=== PATIENT | female | born 1940 | race Caucasian/White ===

== ENCOUNTER 2016-10-19 16:59 | Inpatient (IN) | payer MEDICARE ==
[~2016-10-19] VITALS: Ht 165.1 cm; Wt 75.0 kg
[2016-10-19 17:03] VITALS: BP 119/58; PULSE 71; RESP 18; TEMP 98.3; O2SAT 93
[2016-10-19] MEDS ORDERED: SODIUM CHLOR 0.9% 1000 ML INJ 1,000 ML IV SCH (17:20)
[2016-10-19] MEDS ORDERED: SODIUM CHLORIDE 0.9% FLUSH 5 ML FLUSH IVF PRN (17:30)
--- NOTE | 2016-10-19 17:41 | PD ---
HPI Chief Complaint: Altered Mental Status Time Seen by Provider: 17:05 Travel History International Travel<30 days: No Contact w/Intl Traveler<30days: No Traveled to known affect area: No History of Present Illness HPI The patient is a 76-year-old female who presents emergency department with family for altered mental status. The patient is a somewhat poor historian , does not know why her family "dropped her off "in the emergency department. The patient does complain of some weakness of the upper extremities bilateral, but denies any headache, neck pain, chest pain, shortness of breath, nausea, vomiting, abdominal pain, or dysuria. She denies any weakness of the lower extremities. The patient is a somewhat poor historian, is able to tell me that she has medical problems, but cannot recall her medications. The patient can also not recall what surgery she has had previously. She denies any acute tobacco use. She denies any ingestion of alcohol or drugs. PFSH Past Medical History Medical History: Unable to Obtain Past Surgical History Surgical History: Unable to Obtain Social History Alcohol Use: No Tobacco Use: No Substance Use: No Allergies-Medications (Allergen,Severity, Reaction): Coded Allergies: No Known Allergies (Unverified , 10/19/16) Review of Systems ROS Limitations: Altered Mental Status, Poor Historian Except as stated in HPI: all other systems reviewed are Neg General / Constitutional: No: Fever HENT: Positive: Lightheadedness, No: Headaches Cardiovascular: No: Chest Pain or Discomfort Respiratory: No: Shortness of Breath Gastrointestinal: No: Nausea, Vomiting, Diarrhea, Abdominal Pain Genitourinary: No: Dysuria Musculoskeletal: Positive: Weakness Neurologic: Positive: Weakness, Change in Mentation, No: Dizziness, Headache, Paresthesia, Sensory Disturbance Physical Exam Narrative GENERAL: Awake, alert, pleasant 76-year-old female who appears her stated age and is in no acute respiratory distress. SKIN: Warm and dry. HEAD: Atraumatic. Normocephalic. EYES: Pupils equal and round. Pinpoint bilateral. EOMs intact. ENT: No nasal bleeding or discharge. Upper and lower dentures are in place. NECK: Trachea midline. No JVD. Transverse lower neck anterior scar. CARDIOVASCULAR: Regular rate and rhythm. No murmur appreciated. RESPIRATORY: No accessory muscle use. Clear to auscultation. Breath sounds equal bilaterally. GASTROINTESTINAL: Abdomen soft, nontender, no rebound tenderness. Well-healed midline surgical scar. MUSCULOSKELETAL: No obvious deformities. No clubbing. No cyanosis. No edema. NEUROLOGICAL: Awake and alert. No obvious cranial nerve deficits. Motor grossly within normal limits. Normal speech. 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 PSYCHIATRIC: Appropriate mood and affect; insight and judgment normal. Data Data Last Documented VS Vital Signs Date Time Temp Pulse Resp B/P Pulse Ox O2 Delivery O2 Flow Rate FiO2 10/19/16 18:00 70 16 123/60 93 Room Air 10/19/16 17:03 98.3 Orders Electrocardiogram (10/19/16 ) Alcohol (Ethanol) (10/19/16 17:20) Ammonia (10/19/16 17:20) Complete Blood Count With Diff (10/19/16 17:20) Comprehensive Metabolic Panel (10/19/16 17:20) Creatine Kinase (Cpk) (10/19/16 17:20) Drug Screen, Random Urine (10/19/16 17:20) Prothrombin Time / Inr (Pt) (10/19/16 17:20) Act Partial Throm Time (Ptt) (10/19/16 17:20) Troponin I (10/19/16 17:20) Thyroid Stimulating Hormone (10/19/16 17:20) Urinalysis - C+S If Indicated (10/19/16 17:20) Chest, Single Ap (10/19/16 17:20) Ct Brain W/O Iv Contrast(Rout) (10/19/16 17:20) Blood Glucose (10/19/16 17:20) Ecg Monitoring (10/19/16 17:20) Iv Access Insert/Monitor (10/19/16 17:20) Oximetry (10/19/16 17:20) Sodium Chloride 0.9% Flush (Ns Flush) (10/19/16 17:30) Sodium Chlor 0.9% 1000 Ml Inj (Ns 1000 M (10/19/16 17:20) Sodium Chlorid 0.9% 500 Ml Inj (Ns 500 M (10/19/16 18:15) CKMB (10/19/16 17:40) CKMB% (10/19/16 17:40) Sodium Chlor 0.9% 1000 Ml Inj (Ns 1000 M (10/19/16 19:15) Cath For Specimen (10/19/16 19:12) Labs Laboratory Tests Test 10/19/16 17:40 White Blood Count 7.0 TH/MM3 Red Blood Count 4.57 MIL/MM3 Hemoglobin 12.8 GM/DL Hematocrit 37.9 % Mean Corpuscular Volume 82.8 FL Mean Corpuscular Hemoglobin 27.9 PG Mean Corpuscular Hemoglobin 33.7 % Concent Red Cell Distribution Width 13.7 % Platelet Count 237 TH/MM3 Mean Platelet Volume 10.0 FL Neutrophils (%) (Auto) 65.2 % Lymphocytes (%) (Auto) 20.6 % Monocytes (%) (Auto) 11.7 % Eosinophils (%) (Auto) 2.0 % Basophils (%) (Auto) 0.5 % Neutrophils # (Auto) 4.6 TH/MM3 Lymphocytes # (Auto) 1.4 TH/MM3 Monocytes # (Auto) 0.8 TH/MM3 Eosinophils # (Auto) 0.1 TH/MM3 Basophils # (Auto) 0.0 TH/MM3 CBC Comment DIFF FINAL Differential Comment Prothrombin Time 10.9 SEC Prothromb Time International 1.0 RATIO Ratio Activated Partial 25.9 SEC Thromboplast Time Sodium Level 139 MEQ/L Potassium Level 3.9 MEQ/L Chloride Level 106 MEQ/L Carbon Dioxide Level 21.8 MEQ/L Anion Gap 11 MEQ/L Blood Urea Nitrogen 30 MG/DL Creatinine 1.54 MG/DL Estimat Glomerular Filtration 33 ML/MIN Rate Random Glucose 202 MG/DL Calcium Level 9.0 MG/DL Total Bilirubin 0.3 MG/DL Aspartate Amino Transf 24 U/L (AST/SGOT) Alanine Aminotransferase 24 U/L (ALT/SGPT) Alkaline Phosphatase 123 U/L Ammonia 33 MCMOL/L Total Creatine Kinase 324 U/L Creatine Kinase MB 1.9 NG/ML Creatine Kinase MB % 0.6 % Troponin I LESS THAN 0.02 NG/ML Total Protein 7.4 GM/DL Albumin 3.7 GM/DL Thyroid Stimulating Hormone 2.030 uIU/ML 3rd Gen Ethyl Alcohol Level LESS THAN 3 MG/DL [facility] Medical Decision Making Medical Screen Exam Complete: Yes Emergency Medical Condition: Yes Medical Record Reviewed: Yes Interpretation(s) EKG reveals normal sinus rhythm with a rate of 69. No ischemic changes or ectopy noted. Differential Diagnosis Differential diagnosis includes intracranial hemorrhage, subdural hemorrhage, hyponatremia, UTI, pneumonia, acute coronary syndrome, hypoglycemia, hyperglycemia, elevated ammonia level, delirium, dementia. Narrative Course IV was established, labs are drawn affect, and the patient was placed on cardiac telemetry monitoring and continuous pulse oximetry monitoring. EKG was ordered and interpreted. Chest x-ray was ordered. CT of the brain was ordered. I attempted to bring family members back to the written to inquire further into the patient's current complaints, length of complaints, and past medical history including medications and allergies. I discussed the patient with the daughters, one lives with the patient and was constant, the other is local. 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 The patient was normal, at baseline earlier today when she complained of right hip pain and then had altered mental status. The family notes the patient has been lethargic since lunch time and appears to be slightly altered, but they deny any obvious focal deficits. The patient was signed out to the oncoming physician at 7 PM with UA and disposition pending. Diagnosis Primary Impression: Altered mental status Qualified Code: R41.0 - Delirium Condition: Stable Erickson Mckeon MD Oct 19, 2016 17:41
[2016-10-19 18:00] VITALS: BP 123/60; PULSE 70; RESP 16; O2SAT 93
[2016-10-19 18:01] LABS: AUTOMATED NEUTROPHIL # 4.6 TH/MM3 (1.8-7.7); BASOPHIL % 0.5 % (0.0-2.0); EOSINOPHIL # 0.1 TH/MM3 (0-0.4); HEMATOCRIT 37.9 % (35.0-46.0); HEMO FLAGS DIFF FINAL; LYMPH % 20.6 % (9.0-44.0); LYMPHOCYTE # 1.4 TH/MM3 (1.0-4.8); MEAN CELL VOLUME 82.8 FL (80.0-100.0); MEAN CORPUSCULAR HEMOGLOBIN 27.9 PG (27.0-34.0); MEAN CORPUSCULAR HGB CONC 33.7 % (32.0-36.0); MONO % 11.7 % (0.0-8.0); NEUT % 65.2 % (16.0-70.0); PLATELET COUNT 237 TH/MM3 (150-450); RED BLOOD COUNT 4.57 MIL/MM3 (4.00-5.30); RED CELL DISTRIBUTION WIDTH 13.7 % (11.6-17.2)
[2016-10-19 18:14] LABS: APTT (PATIENT) 25.9 SEC (24.3-30.1); PROTHROMBIN TIME - PATIENT 10.9 SEC (9.8-11.6)
--- NOTE | 2016-10-19 18:14 | RADRPT ---
EXAM DATE/TIME: 10/19/2016 17:53 [facility] COMPARISON: No previous studies available for comparison. INDICATIONS : Syncope, lethargic MEDICAL HISTORY : Hypertension. SURGICAL HISTORY : None. ENCOUNTER: Initial ACUITY: 1 day PAIN SCORE: 0/10 LOCATION: chest FINDINGS: Single AP view of the chest. Mild patchy left lung base opacity. The lungs are otherwise clear. Cardi omediastinal silhouette within normal limits. No evidence of pleural effusion or pneumothorax. CONCLUSION: Mild left lung base atelectasis versus consolidation. Gustavo Hancock MD on October 19, 2016 at 18:12 Board Certified Radiologist. This report was verified electronically.
[2016-10-19] MEDS ORDERED: SODIUM CHLORID 0.9% 500 ML INJ 500 ML IV ONE (18:15)
[2016-10-19 18:22] LABS: ALT (GPT) 24 U/L (10-53); ANION GAP 11 MEQ/L (5-15); AST (GOT) 24 U/L (15-37); BICARBONATE 21.8 MEQ/L (21.0-32.0); BLOOD UREA NITROGEN 30 MG/DL (7-18); CHLORIDE 106 MEQ/L (98-107); GLOMERULAR FILTRATION RATE 33 ML/MIN (>89); POTASSIUM 3.9 MEQ/L (3.5-5.1); SODIUM (NA) 139 MEQ/L (136-145)
[2016-10-19 18:32] LABS: ALKALINE PHOSPHATASE 123 U/L (45-117); CREATINE KINASE 324 U/L (26-192); TOTAL BILIRUBIN ADULT 0.3 MG/DL (0.2-1.0)
--- NOTE | 2016-10-19 18:32 | RADRPT ---
EXAM DATE/TIME: 10/19/2016 18:15 [facility] COMPARISON: No previous studies available for comparison. INDICATIONS : Fall with altered mental status. RADIATION DOSE: 56.35 CTDIvol (mGy) MEDICAL HISTORY : None SURGICAL HISTORY : None. ENCOUNTER: Initial ACUITY: 1 day PAIN SCALE: 0/10 LOCATION: cranial TECHNIQUE: Multiple contiguous axial images were obtained of the head. Using automated exposure control and adj ustment of the mA and/or kV according to patient size, radiation dose was kept as low as reasonably a chievable to obtain optimal diagnostic quality images. FINDINGS: There is no evidence for intracranial hemorrhage, mass effect, mass lesions, or edema. The visualize d bony structures appear intact. Slight degree of brain atrophy is seen. Slight periventricular whit e matter changes are seen nonspecific mostly consistent with chronic small vessel ischemic changes. There are no signs of acute infarction for technique. CONCLUSION: Slight atrophic and small vessel ischemic changes without any evidence for acute hemorrhage or mass effect. Trini Barnes MD on October 19, 2016 at 18:29 Board Certified Radiologist. This report was verified electronically.
[2016-10-19 19:07] LABS: CKMB 1.9 NG/ML (0.5-3.6)
[2016-10-19] MEDS ORDERED: SODIUM CHLOR 0.9% 1000 ML INJ 1,000 ML IV ONE (19:15)
[2016-10-19 19:40] VITALS: BP 118/56; PULSE 67; RESP 18; O2SAT 98
[2016-10-19] MEDS ORDERED: VENL150C39 PO (20:34)
[2016-10-19] MEDS ORDERED: CALC1TAB87 PO (20:35)
[2016-10-19] MEDS ORDERED: VENL37.595 PO (20:35)
[2016-10-19] MEDS ORDERED: D400400C (20:36)
[2016-10-19] MEDS ORDERED: MONT10TA4 PO (20:37)
[2016-10-19] MEDS ORDERED: NIFE10CA PO (20:37)
[2016-10-19] MEDS ORDERED: OMEP20TA PO (20:37)
[2016-10-19] MEDS ORDERED: METO50TA PO (20:37)
[2016-10-19] MEDS ORDERED: DONE10TA7 PO (20:38)
[2016-10-19] MEDS ORDERED: LOSA50TA PO (20:38)
[2016-10-19] MEDS ORDERED: MEMA14CA PO (20:41)
[2016-10-19] MEDS ORDERED: LEVO125T4 PO (20:41)
[2016-10-19] MEDS ORDERED: ASPI81CH CHEW (20:41)
[2016-10-19] MEDS ORDERED: ATOR20TA15 PO (20:42)
[2016-10-19] MEDS ORDERED: SULI200T PO (20:42)
[2016-10-19 20:43] LABS: AMPHETAMINE, URINE NEG (NEG); BARBITURATES, URINE NEG (NEG); COCAINE, URINE NEG (NEG)
[2016-10-19 20:44] LABS: BACTERIA, URINE MOD /hpf; BLOOD, URINE MOD (NEG); GLUCOSE,URINE NEG (NEG); HYALINE CAST, URINE 21 /lpf (RARE); KETONE, URINE NEG (NEG); MUCUS URINE FEW /lpf (OCC); PH, URINE 5.5 (5.0-8.5); URINE COLOR DARK-YELLOW (YELLW/STRAW)
[2016-10-19 20:45] LABS: COMMENT (UR) CATH-CULTURE IND; CULTURE IF INDICATED CATH CULTURE IND; NITRITE,URINE POS (NEG)
--- NOTE | 2016-10-19 20:59 | PD ---
Data Data Last Documented VS Vital Signs Date Time Temp Pulse Resp B/P Pulse Ox O2 Delivery O2 Flow Rate FiO2 10/19/16 19:40 67 18 118/56 98 Room Air 10/19/16 17:03 98.3 Orders Electrocardiogram (10/19/16 ) Alcohol (Ethanol) (10/19/16 17:20) Ammonia (10/19/16 17:20) Complete Blood Count With Diff (10/19/16 17:20) Comprehensive Metabolic Panel (10/19/16 17:20) Creatine Kinase (Cpk) (10/19/16 17:20) Drug Screen, Random Urine (10/19/16 17:20) Prothrombin Time / Inr (Pt) (10/19/16 17:20) Act Partial Throm Time (Ptt) (10/19/16 17:20) Troponin I (10/19/16 17:20) Thyroid Stimulating Hormone (10/19/16 17:20) Urinalysis - C+S If Indicated (10/19/16 17:20) Chest, Single Ap (10/19/16 17:20) Ct Brain W/O Iv Contrast(Rout) (10/19/16 17:20) Blood Glucose (10/19/16 17:20) Ecg Monitoring (10/19/16 17:20) Iv Access Insert/Monitor (10/19/16 17:20) Oximetry (10/19/16 17:20) Sodium Chloride 0.9% Flush (Ns Flush) (10/19/16 17:30) Sodium Chlor 0.9% 1000 Ml Inj (Ns 1000 M (10/19/16 17:20) Sodium Chlorid 0.9% 500 Ml Inj (Ns 500 M (10/19/16 18:15) CKMB (10/19/16 17:40) CKMB% (10/19/16 17:40) Sodium Chlor 0.9% 1000 Ml Inj (Ns 1000 M (10/19/16 19:15) Cath For Specimen (10/19/16 19:12) Urine Culture (10/19/16 19:45) Ceftriaxone Inj (Rocephin Inj) (10/19/16 21:00) Polyethylene Glycol (Miralax) (10/19/16 21:00) Docusate Sodium (Colace) (10/19/16 21:00) Labs Laboratory Tests Test 10/19/16 10/19/16 17:40 19:45 White Blood Count 7.0 TH/MM3 Red Blood Count 4.57 MIL/MM3 Hemoglobin 12.8 GM/DL Hematocrit 37.9 % Mean Corpuscular Volume 82.8 FL Mean Corpuscular Hemoglobin 27.9 PG Mean Corpuscular Hemoglobin 33.7 % Concent Red Cell Distribution Width 13.7 % Platelet Count 237 TH/MM3 Mean Platelet Volume 10.0 FL Neutrophils (%) (Auto) 65.2 % Lymphocytes (%) (Auto) 20.6 % Monocytes (%) (Auto) 11.7 % Eosinophils (%) (Auto) 2.0 % Basophils (%) (Auto) 0.5 % Neutrophils # (Auto) 4.6 TH/MM3 Lymphocytes # (Auto) 1.4 TH/MM3 Monocytes # (Auto) 0.8 TH/MM3 Eosinophils # (Auto) 0.1 TH/MM3 Basophils # (Auto) 0.0 TH/MM3 CBC Comment DIFF FINAL Differential Comment Prothrombin Time 10.9 SEC Prothromb Time International 1.0 RATIO Ratio Activated Partial 25.9 SEC Thromboplast Time Sodium Level 139 MEQ/L Potassium Level 3.9 MEQ/L Chloride Level 106 MEQ/L Carbon Dioxide Level 21.8 MEQ/L Anion Gap 11 MEQ/L Blood Urea Nitrogen 30 MG/DL Creatinine 1.54 MG/DL Estimat Glomerular Filtration 33 ML/MIN Rate Random Glucose 202 MG/DL Calcium Level 9.0 MG/DL Total Bilirubin 0.3 MG/DL Aspartate Amino Transf 24 U/L (AST/SGOT) Alanine Aminotransferase 24 U/L (ALT/SGPT) Alkaline Phosphatase 123 U/L Ammonia 33 MCMOL/L Total Creatine Kinase 324 U/L Creatine Kinase MB 1.9 NG/ML Creatine Kinase MB % 0.6 % Troponin I LESS THAN 0.02 NG/ML Total Protein 7.4 GM/DL Albumin 3.7 GM/DL Thyroid Stimulating Hormone 2.030 uIU/ML 3rd Gen Ethyl Alcohol Level LESS THAN 3 MG/DL Urine Color DARK-YELLOW Urine Turbidity HAZY Urine pH 5.5 Urine Specific [place] 1.022 Urine Protein TRACE mg/dL Urine Glucose (UA) NEG mg/dL Urine Ketones NEG mg/dL Urine Occult Blood MOD Urine Nitrite POS Urine Bilirubin NEG Urine Urobilinogen 2.0 MG/DL Urine Leukocyte Esterase SMALL Urine RBC 2 /hpf Urine WBC 5 /hpf Urine Bacteria MOD /hpf Urine Hyaline Casts 21 /lpf Urine Mucus FEW /lpf Microscopic Urinalysis Comment CATH-CULTURE IND Urine Opiates Screen NEG Urine Barbiturates Screen NEG Urine Amphetamines Screen NEG Urine Benzodiazepines Screen NEG Urine Cocaine Screen NEG Urine Cannabinoids Screen NEG MDM Supervised Visit with CLEMENTINE: No Narrative Course Patient signed out to me by previous provider. Please see associated no for further details. In short patient is a 76-year-old female with history of dementia here for altered mental status. Generalized weakness. Previous provider had strong suspicion for UTI, otherwise her workup including head CT and labs were negative except for slight dehydration. Patient signed out to me pending urinalysis. Patient was straight cathetered. Urinalysis is positive for nitrite. Patient was given dose of Rocephin. I spoke with patient and her family. She is here vacationing from [place] and is due to fly out on Saturday. Patient family members do not fill comfortable taking her home at this time given her persistent altered mental status. Patient will be admitted for further management of her delirium, UTI. Diagnosis Primary Impression: Altered mental status Qualified Code: R41.0 - Delirium Additional Impression: Urinary tract infection Qualified Code: N30.00 - Acute cystitis without hematuria Admitting Information Admitting Physician Requests: Admit Condition: Stable Latisha Abdi MD Oct 19, 2016 20:59
[2016-10-19] MEDS ORDERED: POLYETHYLENE GLYCOL 17 GM PKG PO ONE (21:00)
[2016-10-19] MEDS ORDERED: cefTRIAXone INJ 1,000 MG in SODIUM CHLORIDE 0.9% INJ 100 ML IV ONE (21:00)
[2016-10-19] MEDS ORDERED: DOCUSATE SODIUM 100 MG CAP PO ONE (21:00)
[2016-10-19] MEDS: DOCUSATE SODIUM 100 MG CAP PO SCH (21:30)
[2016-10-19] MEDS ORDERED: NALOXONE HCL 0.4 MG/ML AMP IV PRN (21:30)
[2016-10-19] MEDS ORDERED: MAGNESIUM HYDROXIDE SUSP 30 ML CUP PO PRN (21:30)
[2016-10-19] MEDS ORDERED: SODIUM CHLORIDE 0.9% FLUSH 5 ML FLUSH FLUSH PRN (21:30)
[2016-10-19] MEDS ORDERED: ONDANSETRON HCL 4 MG/2 ML VIAL IVP PRN (21:30)
[2016-10-19 21:35] VITALS: BP 133/61; PULSE 88; RESP 18; O2SAT 98
[2016-10-19] MEDS: SODIUM CHLOR 0.45% 1000 ML INJ 1,000 ML IV SCH (21:44)
[2016-10-19] MEDS ORDERED: ACETAMINOPHEN 325 MG TAB PO PRN (22:00)
--- NOTE | 2016-10-19 22:07 | HHI.HP ---
HPI Service Family Medicine Primary Care Physician No Primary Care Physician Admission Diagnosis delirium, UTI Diagnoses: International Travel<30 Days: No Contact w/Intl Traveler<30days: No Known Affected Area: No History of Present Illness Of note patient is a poor historian most information obtained from sister and daughter This is a 76-year-old female with a past medical history significant for hypertension, hypothyroidism, hyperlipidemia, goiter status post surgical excision, and Alzheimer's dementia. Past surgical history of note is an exploratory laparotomy with splenectomy secondary to trauma. Patient is traveling here with family for vacation from [place]. They will be flying home on Saturday. Patient is uncertain as to why she is in the hospital and does not completely wish to stay but she is in agreement with staying overnight. Per history from family patient was shopping in [place], when she started to feel weak and confused around lunchtime. Family became worried and they brought her to the ED to be evaluated. I thought that her overall dementia has worsened, but the main concern was the generalized weakness and difficulty with walking. They deny noticing any focal deficits such as facial droop or one-sided weakness. Patient admits to feeling weakness in both of her upper and lower extremities. She denies any chest pain or shortness of breath, nausea or vomiting, headache or neck pain. Also patient denies any fevers, chills, or abdominal pain. Of note family reports that she's had UTIs in the past but it has been some time since her last episode. (Rob Payan MD R2) Review of Systems ROS Limitations: Clinical Condition, Altered Mental Status, Other (Baseline Alzheimer's) Constitutional: DENIES: Fever, Chills, Change in appetite Ears, nose, mouth, throat: DENIES: Nasal discharge, Throat pain, Ear Pain, Running Nose, Sinus Pain Respiratory: DENIES: Cough, Sputum production, Shortness of breath Cardiovascular: DENIES: Chest pain, Syncope, Dyspnea on Exertion Gastrointestinal: COMPLAINS OF: Constipation, DENIES: Abdominal pain, Black stools, Bloody stools, Diarrhea, Nausea, Vomiting Genitourinary: DENIES: Dyspareunia Musculoskeletal: COMPLAINS OF: Joint pain, Stiffness, Back pain, DENIES: Joint Swelling, Neck pain Integumentary: DENIES: Rash Hematologic/lymphatic: COMPLAINS OF: Bruising Neurologic: COMPLAINS OF: Abnormal gait (at baseline needs a walker), Poor Balance, DENIES: Headache, Seizures Psychiatric: COMPLAINS OF: Anxiety, Confusion (Alzheimer's at baseline), DENIES: Depression (Rob Payan MD R2) Past Family Social History Past Medical History Hypertension Hyperlipidemia Hypothyroidism Goiter Alzheimer's dementia Past Surgical History Exploratory laparotomy with splenectomy Goiter excision Reported Medications Reported Meds & Active Scripts Active Reported Sulindac 200 Mg Tab 200 Mg PO BID Atorvastatin (Atorvastatin Calcium) 20 Mg Tab 20 Mg PO HS Levothyroxine (Levothyroxine Sodium) 125 Mcg Tab 125 Mcg PO DAILY Namenda Xr (Memantine) 14 Mg Caper 14 Mg PO DAILY Aspirin 81 Mg Chew 81 Mg CHEW DAILY Donepezil 10 Mg Tab 10 Mg PO HS Losartan (Losartan Potassium) 50 Mg Tab 50 Mg PO DAILY Omeprazole 20 Mg Tab 20 Mg PO DAILY Metoprolol Tartrate 50 Mg Tab 50 Mg PO DAILY Montelukast (Montelukast Sodium) 10 Mg Tab 10 Mg PO HS Nifedipine 10 Mg Cap 10 Mg PO DAILY Vitamin D3 400 (Cholecalciferol) 400 Unit Cap Calcium 600 with Vitamin D (Calcium Carbonate-Cholecalciferol) 600-400 mg-Unit Tab 1 Tab PO DAILY Venlafaxine ER 24 HR (Venlafaxine HCl) 37.5 Mg Cap 37.5 Mg PO DAILY Venlafaxine ER 24 HR (Venlafaxine HCl) 150 Mg Cap 150 Mg PO DAILY (Rob Payan MD R2) Allergies: Coded Allergies: No Known Allergies (Unverified , 10/19/16) Active Ordered Medications Current Medications Medications (Trade) Dose Ordered Sig/Kit Route Start Time Stop Time Status Last Admin IV Flush 2 ml 2 ml UNSCH PRN IVF 10/19/16 17:30 (NS 1000 ml Inj) 1,000 ml @ 125 mls/hr Q8H IV 10/19/16 17:20 10/20/16 01:19 10/19/16 18:02 Family History Noncontributory Social History Patient lives in [place] with her daughter 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 SKIN: Warm and dry. HEAD: Atraumatic. Normocephalic. EYES: Pupils equal and round. Pinpoint bilateral. EOMs intact. ENT: No nasal bleeding or discharge. Upper and lower dentures are in place. Uvula midline, moist mucous membranes NECK: Trachea midline. No JVD. Transverse lower neck anterior scar. CARDIOVASCULAR: Regular rate and rhythm. No murmur appreciated. RESPIRATORY: No accessory muscle use. Clear to auscultation. Breath sounds equal bilaterally. GASTROINTESTINAL: Abdomen soft, nontender, no rebound tenderness. Well-healed midline surgical scar. MUSCULOSKELETAL: No obvious deformities. No clubbing. No cyanosis. No edema. NEUROLOGICAL: Awake and alert. No obvious cranial nerve deficits. Motor grossly within normal limits. Normal speech. Patient is oriented to person, where she lives, where she is. She is not oriented to date PSYCHIATRIC: Appropriate mood and affect; insight and judgment normal. Laboratory Laboratory Tests Test 10/19/16 10/19/16 17:40 19:45 White Blood Count 7.0 Red Blood Count 4.57 Hemoglobin 12.8 Hematocrit 37.9 Mean Corpuscular Volume 82.8 Mean Corpuscular Hemoglobin 27.9 Mean Corpuscular Hemoglobin 33.7 Concent Red Cell Distribution Width 13.7 Platelet Count 237 Mean Platelet Volume 10.0 Neutrophils (%) (Auto) 65.2 Lymphocytes (%) (Auto) 20.6 Monocytes (%) (Auto) 11.7 Eosinophils (%) (Auto) 2.0 Basophils (%) (Auto) 0.5 Neutrophils # (Auto) 4.6 Lymphocytes # (Auto) 1.4 Monocytes # (Auto) 0.8 Eosinophils # (Auto) 0.1 Basophils # (Auto) 0.0 CBC Comment DIFF FINAL Differential Comment Prothrombin Time 10.9 Prothromb Time International 1.0 Ratio Activated Partial 25.9 Thromboplast Time Sodium Level 139 Potassium Level 3.9 Chloride Level 106 Carbon Dioxide Level 21.8 Anion Gap 11 Blood Urea Nitrogen 30 Creatinine 1.54 Estimat Glomerular Filtration 33 Rate Random Glucose 202 Calcium Level 9.0 Total Bilirubin 0.3 Aspartate Amino Transf 24 (AST/SGOT) Alanine Aminotransferase 24 (ALT/SGPT) Alkaline Phosphatase 123 Ammonia 33 Total Creatine Kinase 324 Creatine Kinase MB 1.9 Creatine Kinase MB % 0.6 Troponin I LESS THAN 0.02 Total Protein 7.4 Albumin 3.7 Thyroid Stimulating Hormone 2.030 3rd Gen Ethyl Alcohol Level LESS THAN 3 Urine Color DARK-YELLOW Urine Turbidity HAZY Urine pH 5.5 Urine Specific [place] 1.022 Urine Protein TRACE Urine Glucose (UA) NEG Urine Ketones NEG Urine Occult Blood MOD Urine Nitrite POS Urine Bilirubin NEG Urine Urobilinogen 2.0 Urine Leukocyte Esterase SMALL Urine RBC 2 Urine WBC 5 Urine Bacteria MOD Urine Hyaline Casts 21 Urine Mucus FEW Microscopic Urinalysis Comment CATH-CULTURE IND Urine Opiates Screen NEG Urine Barbiturates Screen NEG Urine Amphetamines Screen NEG Urine Benzodiazepines Screen NEG Urine Cocaine Screen NEG Urine Cannabinoids Screen NEG Date/Time Procedure Status Source Growth 10/19/16 19:45 Urine Culture Received Urine Clean Catch Pending (Rob Payan MD R2) Result Diagram: 10/19/16 1740 10/19/16 1740 Assessment and Plan Assessment and Plan This is a 76-year-old female with a past medical history significant for hypertension, hypothyroidism, hyperlipidemia, goiter status post surgical excision, and Alzheimer's dementia. Past surgical history of note is an exploratory laparotomy with splenectomy secondary to trauma. Being admitted for urinary tract infection that is causing generalized weakness and delirium on dementia Code Status Full code Discussed Condition With SDW: Dr. Emy Naik WDW: Dr. Mary (Rob Payan MD R2) Attending Attestation THIS CASE WAS DISCUSSED WITH THE RESIDENT PHYSICIANS. I HAVE REVIEWED THE RECORD AND AGREE WITH THE ABOVE NOTE AND PLAN OF CARE WAS DISCUSSED. I HAVE AUTHORIZED THE ORDER FOR ADMISSION TO AN IN-PATIENT STATUS. (Noman Mary MD) Problem List: (1) Urinary tract infection Status: Acute Plan: Patient being admitted for urinary tract infection inducing altered mental status. White blood cell count is 7.0. Urine dark yellow, moderate occult blood, nitrites positive, leukocyte esterase high, bacteria moderate, and urine mucus few. Suggestive of urinary tract infection cultures pending. * Admitted to inpatient * Started Rocephin 2 g daily * IV fluids at 75 MLS normal saline * Blood cultures pending * Urine cultures pending * CBC, BMP ordered for the a.m. (2) Altered mental status Status: Acute Plan: Being admitted for generalized weakness and altered mental status superimposed on her baseline dementia of Alzheimer's. * See plan above (3) Alzheimer disease Status: Acute Plan: Patient has a [place] history of Alzheimer's dementia * Continue memantine 40 mg by mouth daily * Continue donepezil 10 mg by mouth (4) Hypothyroidism Status: Acute Plan: History of goiter has been subsequently removed currently has hypothyroidism. * Continue Synthroid 125 MCG by mouth daily (5) Depression with anxiety Status: Acute Plan: Patient has a long-standing history of depression with anxiety * Continue venlafaxine per home dose (6) Hypertension Status: Acute Plan: Patient has a long-standing history of hypertension * Continue nifedipine 10 mg by mouth daily * Metoprolol 50 mg by mouth daily (7) Dyslipidemia Status: Acute Plan: Long-standing history of dyslipidemia * Continue home medication of atorvastatin (8) Nutrition, metabolism, and development symptoms Status: Acute Plan: Out of bed ad santi. I's and O's SCDs for DVT prophylaxis Vitals every 4 Monitor electrolytes replace accordingly Titrate oxygen accordingly CODE STATUS: Full code Disposition: Upon improvement of altered mental status and appropriate treatment of UTI (Rob Payan MD R2) Physician Certification 2 Midnight Certification Type: Admission for Inpatient Services Order for Inpatient Services The services are ordered in accordance with Medicare regulations or non- Medicare payer requirements, as applicable. In the case of services not specified as inpatient-only, they are appropriately provided as inpatient services in accordance with the 2-midnight benchmark. Estimated LOS (days): 2 days is the estimated time the patient will need to remain in the hospital, assuming treatment plan goals are met and no additional complications. Post-Hospital Plan: Home (Rob Payan MD R2) Problem Qualifiers (1) Urinary tract infection: Qualified Code: N30.00 - Acute cystitis without hematuria (2) Altered mental status: Qualified Code: R41.0 - Delirium Rob Payan MD R2 Oct 19, 2016 22:07 Noman Mary MD Oct 20, 2016 11:27
[2016-10-20 00:34] VITALS: BP 137/60; PULSE 64; RESP 20; TEMP 98; O2SAT 96
[2016-10-20 05:40] LABS: AUTOMATED NEUTROPHIL # 3.3 TH/MM3 (1.8-7.7); BASOPHIL % 0.5 % (0.0-2.0); EOSINOPHIL # 0.1 TH/MM3 (0-0.4); EOSINOPHIL % 1.5 % (0.0-4.0); HEMATOCRIT 33.3 % (35.0-46.0); HEMO FLAGS DIFF FINAL; LYMPH % 18.3 % (9.0-44.0); LYMPHOCYTE # 0.9 TH/MM3 (1.0-4.8); MEAN CELL VOLUME 82.8 FL (80.0-100.0); MEAN CORPUSCULAR HEMOGLOBIN 28.3 PG (27.0-34.0); MEAN CORPUSCULAR HGB CONC 34.1 % (32.0-36.0); MONO % 12.4 % (0.0-8.0); NEUT % 67.3 % (16.0-70.0); PLATELET COUNT 189 TH/MM3 (150-450); RED BLOOD COUNT 4.02 MIL/MM3 (4.00-5.30); RED CELL DISTRIBUTION WIDTH 13.8 % (11.6-17.2); WHITE BLOOD COUNT 4.9 TH/MM3 (4.0-11.0)
[2016-10-20] MEDS ORDERED: LEVOTHYROXINE SODIUM 125 MCG TAB PO SCH (06:00)
[2016-10-20 06:12] LABS: POTASSIUM 3.9 MEQ/L (3.5-5.1)
[2016-10-20 08:20] VITALS: BP 147/57; PULSE 79; RESP 18; TEMP 97.8; O2SAT 98
[2016-10-20] MEDS ORDERED: NAMENDA 14 MG PO SCH (09:00)
[2016-10-20] MEDS ORDERED: ASPIRIN 81 MG CHEW TAB CHEW SCH (09:00)
[2016-10-20] MEDS ORDERED: NIFEdipine 10 MG CAP PO SCH (09:00)
[2016-10-20] MEDS ORDERED: VENLAFAXINE HCL XR 37.5 MG CAP PO SCH (09:00)
[2016-10-20] MEDS ORDERED: METOPROLOL TARTRATE 50 MG TAB PO SCH (09:00)
[2016-10-20] MEDS ORDERED: SODIUM CHLORIDE 0.9% FLUSH 5 ML FLUSH FLUSH SCH (09:00)
[2016-10-20] MEDS ORDERED: PANTOPRAZOLE SOD 20 MG DELAYED RELEASE TAB PO SCH (09:00)
[2016-10-20] MEDS ORDERED: LOSARTAN 50 MG TAB PO SCH (09:00)
[2016-10-20] MEDS: VENLAFAXINE HCL XR 75 MG CAP PO SCH ×2 (09:33→09:36)
[2016-10-20] MEDS: DOCUSATE SODIUM 100 MG CAP PO SCH (09:34)
--- NOTE | 2016-10-20 09:40 | HHI.FPPN ---
Subjective Remarks FM Attending Note: Patient seen and examined. S: Chart and all resident physician notes reviewed. In summary this is a 76 year old female who was admitted with an admission diagnosis of Delirium, Uti. This patient is vacationing in [place] from [place] with a scheduled flight to return tomorrow morning from [place]. Her fluid intake yesterday was suboptimal and she appeared to become somewhat dehydrated with an alteration of her mental status. She does have baseline mild dementia. She also has a history of previous UTIs. This morning other than confusion she denies any specific complaints. No fever or chills have occurred overnight. Vital signs otherwise have been stable. No pain or shortness of breath is noted. No specific urinary symptoms are noted. Objective Vitals Vital Signs Date Time Temp Pulse Resp B/P Pulse Ox O2 Delivery O2 Flow Rate FiO2 10/20/16 08:20 97.8 79 18 147/57 98 10/20/16 00:34 98.0 64 20 137/60 96 10/19/16 21:35 88 18 133/61 98 Room Air 10/19/16 19:40 67 18 118/56 98 Room Air 10/19/16 18:00 70 16 123/60 93 Room Air 10/19/16 17:05 72 18 93 Room Air 10/19/16 17:03 98.3 71 18 119/58 93 I/O 10/19/16 10/19/16 10/19/16 10/20/16 10/20/16 10/20/16 07:00 15:00 23:00 07:00 15:00 23:00 Intake Total 160 ml Output Total 450 ml Balance -290 ml Intake Oral 160 ml Output Urine Total 450 ml # Voids 1 # Bowel Movements 1 Result Diagram: 10/20/16 0516 10/20/16 0516 Other Results Item Value Date Time Total Bilirubin 0.3 MG/DL 10/19/16 1740 Aspartate Amino Transf (AST/SGOT) 24 U/L 10/19/16 1740 Alanine Aminotransferase (ALT/SGPT) 24 U/L 10/19/16 1740 Alkaline Phosphatase 123 U/L H 10/19/16 1740 Ammonia 33 MCMOL/L H 10/19/16 1740 Total Creatine Kinase 324 U/L H 10/19/16 1740 Creatine Kinase MB 1.9 NG/ML 10/19/16 1740 Creatine Kinase MB % 0.6 % 10/19/16 1740 Troponin I LESS THAN 0.02 NG/ML L 10/19/16 1740 Thyroid Stimulating Hormone 3rd Gen 2.030 uIU/ML 10/19/16 1740 Total Protein 7.4 GM/DL 10/19/16 1740 Albumin 3.7 GM/DL 10/19/16 1740 Urine Specific [place] 1.022 10/19/161944 Urine Occult Blood MOD H 10/19/161944 Urine Nitrite POS H 10/19/161944 Urine Leukocyte Esterase SMALL H 10/19/161944 Urine RBC 2 /hpf 10/19/161944 Urine WBC 5 /hpf 10/19/161944 Urine Bacteria MOD /hpf H 10/19/161944 Imaging Last [address] 10/19/16 172 Signed Impressions: Service Date/Time: Wednesday, October 19, 2016 18:15 - CONCLUSION: Slight atrophic and small vessel ischemic changes without any evidence for acute hemorrhage or mass effect. KItalia Barnes MD Chest X-Ray 10/19/161719 Signed Impressions: Service Date/Time: Wednesday, October 19, 2016 17:53 - CONCLUSION: Mild left lung base atelectasis versus consolidation. Gustavo Hancock MD Objective Remarks O. CONSTITUTIONAL/GEN: normally nourished, in NAD. EYES: conjunctiva normal, NEURO: No focal deficits. SKIN: color normal, no rashes noted. MUSC: back is normal in appearance. Extremities are normal in appearance. PSYCH/MENTAL STATUS: Alert and alert. Disoriented to place and time. A/P Assessment and Plan This is a 76-year-old female with a past medical history significant for hypertension, hypothyroidism, hyperlipidemia, goiter status post surgical excision, and Alzheimer's dementia. Past surgical history of note is an exploratory laparotomy with splenectomy secondary to trauma. Being admitted for urinary tract infection that is causing generalized weakness and delirium on dementia Problem List: (1) Urinary tract infection Status: Acute Plan: Patient being admitted for urinary tract infection inducing altered mental status. White blood cell count is 7.0. Urine dark yellow, moderate occult blood, nitrites positive, leukocyte esterase high, bacteria moderate, and urine mucus few. Suggestive of urinary tract infection cultures pending. * Admitted to inpatient * Started Rocephin 2 g daily * IV fluids at 75 MLS normal saline * Blood cultures pending * Urine cultures pending * CBC, BMP ordered for the a.m. 10/20/16 * This patient has been afebrile overnight with no elevation of her white blood cell count. She does have an abnormal urinalysis suggestive of a possible UTI. The primary change in her mental status appeared to be due to dehydration which is now improved. Culture results on her urine are pending but will switch the patient over to Bactrim DS 3 times a day over the next 5 days for treatment pending final results on the urine culture. The patient will be discharged in order to meet her travel needs. She has been instructed to increase her fluid intake to stay well-hydrated. She will follow-up with her primary physician next week and then a soda. (2) Altered mental status Status: Acute Plan: Being admitted for generalized weakness and altered mental status superimposed on her baseline dementia of Alzheimer's. * See plan above 10/20/16 This patient now appears to be back at her baseline. Would suspect dehydration as the primary exacerbating factor of her altered mental status on admission. Hydration has been emphasized to patient and family. (3) Alzheimer disease Status: Acute Plan: Patient has a [place] history of Alzheimer's dementia * Continue memantine 40 mg by mouth daily * Continue donepezil 10 mg by mouth 10/20/16 This patient has a baseline history of Alzheimer's dementia. While reviewing the medical situation with the patient and her daughter her daughter asked to speak with me privately. The daughter was upset that her phone number was given to Mrs. Chacon last night at 3 AM by the nursing staff. Apparently Mrs. Chacon called her several times confused and crying not knowing where she was. The daughter was unhappy that her number was given out. As noted above, the patient appears to be at her baseline and will be discharged for continued care on an ambulatory basis when she returns home to [place] next week. (4) Hypothyroidism Status: Acute Plan: History of goiter has been subsequently removed currently has hypothyroidism. * Continue Synthroid 125 MCG by mouth daily (5) Depression with anxiety Status: Acute Plan: Patient has a long-standing history of depression with anxiety * Continue venlafaxine per home dose (6) Hypertension Status: Acute Plan: Patient has a long-standing history of hypertension * Continue nifedipine 10 mg by mouth daily * Metoprolol 50 mg by mouth daily (7) Dyslipidemia Status: Acute Plan: Long-standing history of dyslipidemia * Continue home medication of atorvastatin (8) Nutrition, metabolism, and development symptoms Status: Acute Plan: Out of bed ad santi. I's and O's SCDs for DVT prophylaxis Vitals every 4 Monitor electrolytes replace accordingly Titrate oxygen accordingly CODE STATUS: Full code Disposition: Upon improvement of altered mental status and appropriate treatment of UTI Problem Qualifiers (1) Urinary tract infection: Qualified Code: N30.00 - Acute cystitis without hematuria (2) Altered mental status: Qualified Code: R41.0 - Delirium Noman Mary MD Oct 20, 2016 09:40
--- NOTE | 2016-10-20 09:56 | HHI.DCPOC ---
Discharge Care Plan Diagnosis: (1) Urinary tract infection Goals to Promote Your Health * To prevent worsening of your condition and complications * To maintain your health at the optimal level Directions to Meet Your Goals Take your medications as prescribed Follow your dietary instruction Follow activity as directed Keep your appointments as scheduled Take your immunizations and boosters as scheduled If your symptoms worsen call your PCP, if no PCP go to Urgent Care Center or Emergency Room Smoking is Dangerous to Your Health. Avoid second hand smoke Call the 24-hour hour crisis hotline for domestic abuse at Narayan Fernandez MD R3 Oct 20, 2016 09:56
[2016-10-20] MEDS ORDERED: BACT800T5 PO (10:19)
[2016-10-20] MEDS: SODIUM CHLOR 0.45% 1000 ML INJ 1,000 ML IV SCH (11:01)
[2016-10-20 12:40] VITALS: BP 149/70; PULSE 72; RESP 18; TEMP 97.4; O2SAT 97
[2016-10-20] MEDS ORDERED: cefTRIAXone INJ 2,000 MG in SODIUM CHLORIDE 0.9% INJ 100 ML IV SCH ×2 (13:00→21:00)
[2016-10-20] MEDS ORDERED: ATORVASTATIN 20 MG TAB PO SCH (21:00)
[2016-10-20] MEDS ORDERED: MONTELUKAST SODIUM 10 MG TAB PO SCH (21:00)
[2016-10-20] MEDS ORDERED: DONEPEZIL HCL 5 MG TAB PO SCH (21:00)
[2016-10-21] MEDS ORDERED: PNEUMOCOCCAL POLYVALENT INJ 25 MCG/0.5 ML SYR IM ONE (10:00)
[2016-10-21] MEDS ORDERED: INFLUENZA VIRUS VACCINE (QUADRIVALENT) 0.5 ML SYR IM ONE (10:00)
--- NOTE | 2016-10-21 11:54 | EKG ---
Date Performed: 10/19/2016 Time Performed: 17:08:06 PTAGE: 76 years EKG: Sinus rhythm NORMAL ECG INTERPRETATION BASED ON A DEFAULT AGE OF 40 YEARS NO PREVIOUS TRACING DOCTOR: Rogelio Mcginnis Interpretating Date/Time 10/21/2016 11:54:02
== END 2016-10-20 16:35 | disposition home or self-care (01) | DRG 690 ==
LOC: EDBD → NEPE 16:59 → NEDH 21:10 → NEPHCDU 10-20 00:15
PROVIDERS: ADMIT Family Medicine; ATTEND Family Medicine
DX: N39.0 Urinary tract infection, site not specified (principal); G30.9 Alzheimer's disease, unspecified; I10 Essential (primary) hypertension; F02.80 Dementia in other diseases classified elsewhere, unspecified severity, without behavioral disturbance, psychotic disturbance, mood disturbance, and anxiety; E03.9 Hypothyroidism, unspecified; E78.5 Hyperlipidemia, unspecified; F41.8 Other specified anxiety disorders; E04.9 Nontoxic goiter, unspecified
CPT/HCPCS: 70450; 71010; 80048; 80053; 80307; 80320; 81001; 82140; 82550; 82552; 84443; 84484; 85025; 85610; 85730; 87040; 87077; 87086; 87186; 93005; 96360; 96361; G8987-GP; G8988-GP; J0696; J7030; J7040; P9612